=== PATIENT | male | born 1990 | race Caucasian/White ===

== ENCOUNTER → 2021-04-28 | Outpatient (CLI) | payer OTHER ==
[~2021-04-28] MED LIST: NOHOMEMEDICATIONS
== END ==
LOC: LAB 06:33
PROVIDERS: Student in an Organized Health Care Education/Training Program; ATTEND Orthopaedic Surgery Sports Medicine
DX: Z01.812 Encounter for preprocedural laboratory examination (principal); Z20.822 Contact with and (suspected) exposure to COVID-19

== ENCOUNTER 2021-04-29 06:17 | Day surgery (SDC) | payer OTHER ==
[~2021-04-29] VITALS: Ht 167.6 cm; Wt 77.1 kg
[2021-04-29 07:55] VITALS: BP 118/71
[2021-04-29 10:28] VITALS: BP 118/71
--- NOTE | 2021-04-29 13:04 | O ---
[facility] [place] [address] OPERATIVE REPORT Name: FAVIAN HENNESSY Room #: [facility] M..#: [id number] Admission: 04/29/21 Attend Phys: Quinn Vela MD Discharge: Date of : 89 Report #: [id number] THIS REPORT FOR: cc: FAM - No family physician/PCP FAM - No family physician/PCP Quinn Vela MD ~ DATE OF SERVICE: 04/29/2021 SERVICE: Orthopedics. FACILITY: [place]. SURGEON: Quinn Vela MD BAREBACK RIDER: Diamond Cook NP. INDICATIONS FOR BAREBACK RIDER: Extremity positioning, graft preparation and management, arthroscope management, assistance with the reconstruction. PREOPERATIVE DIAGNOSES: 1. Left knee ACL tear. 2. Left knee medial meniscus tear. 3. Left knee lateral meniscus tear. POSTOPERATIVE DIAGNOSES: 1. Left knee ACL tear. 2. Left knee medial meniscus tear. 3. Left knee lateral meniscus tear. PROCEDURE PERFORMED: 1. Left knee arthroscopic ACL reconstruction with allograft. 2. Left knee lateral meniscus repair with all-inside technique. 3. Left knee partial medial meniscectomy. COMPLICATIONS: Anaphylaxis after administration of Ancef, which was controlled with standard anesthetic measures. FINDINGS: 1. Arthrex GraftLink ACL reconstruction with cortical fixation on the femur and the tibia. 2. Lateral meniscus radial tear at the midportion of the body, treated with 0.9 mm Arthrex SutureTape x 3 with a [id number]-kr-crng repair. 3. Large displaced bucket handle medial meniscus tear that had deterioration and degeneration of the tissue and was poor quality and irreparable. Approximately 80% meniscal volume resected. 4. Overall intact articular cartilage with superficial partial-thickness [facility] [address] [place] [address] OPERATIVE REPORT Name: FAVIAN HENNESSY Room #: 150-[facility] M.R.#: [id number] Admission: 04/29/21 Attend Phys: Quinn Vela MD Discharge: Date of : 89 Report #: [id number] chondromalacia of the medial femoral condyle secondary to abnormal wear from the displaced bucket handle meniscus tear during the duration of displacement. HISTORY: The patient is a 30-year-old gentleman with history of multiple injuries to his left knee, ultimately resulting in an ACL tear, medial and lateral meniscus tears with a displaced bucket handle of the medial meniscus that had locked at terminal extension. He was indicated for surgical treatment. Risks, benefits, alternatives and indications were discussed with him in detail. Risks include but not limited to pain, bleeding, infection, injury to nerves or blood vessels, persistent pain despite surgical intervention, failure of any repairs, progression of preexisting chondral injury, stiffness, need for further surgery as well as complications related to anesthesia. Despite the risks, he wished to proceed. DESCRIPTION OF PROCEDURE: After left lower extremity was correctly identified in the preoperative holding area as the operative extremity, the patient underwent regional nerve block. He was then taken to the operating room where general anesthesia was induced without complication. Prophylactic antibiotics with Ancef were administered at appropriate time and then he showed signs of anaphylaxis, developed a red rash, tachycardia, and hypotension. He was administered a series of medications by Anesthesia and maintained his oxygen saturation at 100% throughout the episode and his vital signs recovered to normal and the rash subsided. The tourniquet was applied to left leg. The left lower extremity was prepped and draped in standard sterile fashion. Timeout procedure performed. Esmarch were used, tourniquet inflated to 250 mmHg. Standard anterolateral viewing portal was established followed by anteromedial working portal. Diagnostic arthroscopy revealed the above findings. The posterior horn of the medial meniscus was displaced out the front of the medial compartment and this was actually quite difficult to reduce initially, ultimately required a blunt trocar as well as manipulation of the knee and range of motion to reduce it. He had a tight medial compartment and the meniscus both displaced and reduced looked to be of degenerative tissue quality. There was fraying on the backside of the meniscus and the residual posterior horn had a complex tear as well. I initially assessed it for the ability to repair, but ultimately the tissue quality would not have been amenable to surgical repair of the meniscus and I felt there was a very high likelihood and almost certainty that we will be back in a short period of time to perform partial meniscectomy. Ultimately, the decision was made to perform a partial meniscectomy today. The leg was placed in the [id number] position, the lateral compartment was evaluated. The articular cartilage was intact. There was a near full-thickness radial tear of the lateral meniscus extending about 90% of the width of the meniscus and this was at approximately the 50 yard line of the meniscus and it had essentially into posterior half and an anterior half that were [facility] [address] [place] [address] OPERATIVE REPORT Name: FAVIAN HENNESSY Room #: 150-[facility] Iliana.Charlene#: [id number] Admission: 04/29/21 Attend Phys: Quinn Vela MD Discharge: Date of : 89 Report #: [id number] functionally at this point. This is a high risk meniscal tear and I wanted to preserve the meniscus if at all possible, so we used the Arthrex meniscal Scorpion and passed a 0.9 mm SutureTape with horizontal mattress sutures x 3 repairing the [id number]-syfq and achieving good compression and then a biter was used to trim the inner rim of the residual lateral meniscus to stable margins. Meniscus was probed. We did look at the meniscus again after completion of the ACL reconstruction and confirmed that it was still intact. Attention was turned back toward the medial compartment where I used the biter and a shaver to resect the bucket handle medial meniscus tear at the anterior horn and then at the posterior horn and removed it completely. I passed the scope into the posterior aspect of the knee between the capsule and the medial femoral condyle to confirm that complete resection of the meniscus had been achieved. He has about 20% meniscal volume residual. The leg was placed in the 90-degree position and then the Arthrex FlipCutter was used to create an 8.5 x 23 mm socket on the femoral side and a 9 mm socket on the tibial side in the anatomic position and then we passed the graft into the knee, seated in the femoral socket and then back passed it into the tibial socket and took the knee through range of motion and balanced the graft position in the femoral and tibial tunnels and then placed the knee in extension, performed a reverse Litzy maneuver and tensioned the graft accordingly. The knee was taken through range of motion once more. Litzy maneuver and pivot shift maneuvers were performed and then the graft was again re-tensioned. Litzy was negative and at this point, the sutures were tied back over the buttons for reinforcement. Suture tails were cut. We placed the scope back into the knee to confirm acceptable appearance of the reconstruction and that the lateral meniscus repair was still intact. The arthroscopic effusion was drained. Instruments were removed. Portal sites were closed. Skin was closed with 2-0 Vicryl followed by Monocryl and a sterile dressing was applied followed by compression stocking, PolarCare device and a knee immobilizer. POSTOPERATIVE PLAN: Will be 30 pounds partial weightbearing for 6 weeks. He will have a knee immobilizer to wear for 2-4 weeks and wean out of that as safety and stability on the crutches progressive area on the side of utilizing the brace as needed for safety to protect the meniscus repair. Range of motion is unrestricted during the immediate postoperative period. <ELECTRONICALLY SIGNED> By: Quinn Vela MD 04/29/21 [id number] Quinn Vela MD /nt
== END 2021-04-29 11:50 | disposition home or self-care (01) ==
LOC: OR → TBA 06:25 → OR 06:33
PROVIDERS: ATTEND Orthopaedic Surgery Sports Medicine
DX: S83.512A Sprain of anterior cruciate ligament of left knee, initial encounter (principal); S83.282A Other tear of lateral meniscus, current injury, left knee, initial encounter; S83.212A Bucket-handle tear of medial meniscus, current injury, left knee, initial encounter; Z98.890 Other specified postprocedural states; Z79.899 Other long term (current) drug therapy; Z87.891 Personal history of nicotine dependence; X58.XXXA Exposure to other specified factors, initial encounter; Y93.89 Activity, other specified; Y92.89 Other specified places as the place of occurrence of the external cause; Y99.8 Other external cause status
CPT/HCPCS: 50010; 50101; 50386; 50405; 52313; 53337; 56524; 56527; 57103; 57179; 57979; 58352; 58485; 58589; 58680; 58682; 58771; 58875; 58876; 58877; 58916; 58917; 58919; 59024; 62110; 62900; 64041; 70005